=== PATIENT | male | born 1970 | race Caucasian/White ===

== ENCOUNTER → 2019-12-01 09:17 | Outpatient (BNVA) | payer OTHER, SELFPAY | PROVIDERS: Visit Provider Physician Assistant | DX: Z47.89 Encounter for other orthopedic aftercare (principal) | CPT/HCPCS: 99212 ==

== ENCOUNTER → 2019-12-21 13:17 | Outpatient (BNVA) | payer OTHER, SELFPAY | PROVIDERS: Visit Provider Orthopaedic Surgery | DX: M75.42 Impingement syndrome of left shoulder (principal); Z98.890 Other specified postprocedural states | CPT/HCPCS: 99212 ==

== ENCOUNTER → 2020-02-01 09:00 | Outpatient (BNVA) | payer OTHER, SELFPAY | PROVIDERS: Visit Provider Orthopaedic Surgery | DX: Z98.890 Other specified postprocedural states (principal) | CPT/HCPCS: 99212 ==

== ENCOUNTER → 2020-03-07 09:10 | Outpatient (BNVA) | payer OTHER, SELFPAY | PROVIDERS: Visit Provider Orthopaedic Surgery | DX: M25.512 Pain in left shoulder (principal); Z98.890 Other specified postprocedural states | CPT/HCPCS: 20605; 99212; J1020 ==

== ENCOUNTER → 2020-04-04 10:24 | Outpatient (BNVA) | payer OTHER, SELFPAY | PROVIDERS: Visit Provider Orthopaedic Surgery | DX: M25.512 Pain in left shoulder (principal) | CPT/HCPCS: 20605; 99212; J1040 ==

== ENCOUNTER → 2020-05-01 10:38 | Outpatient (BNVA) | payer OTHER, SELFPAY | PROVIDERS: Visit Provider Physician Assistant | DX: M25.512 Pain in left shoulder (principal) | CPT/HCPCS: 99212 ==

== ENCOUNTER 2020-05-03 08:39 | Day surgery (SDC) | payer OTHER, SELFPAY ==
[2020-04-27 14:53] VITALS: BMI 27.2
--- NOTE | 2020-05-02 10:59 | HO.ANESPROP2 ---
Documented by User: Celeste House 05/02/20 11:03 HPI - Anesthesia Eval Consult details Narrative: 50yo M for Right AC Joint Resection s/p L rotator cuff repair with GA-LMA 5 11/17/19 [facility] Active Problems Active Problems: All Active Problems (Updated 04/27/20 @ 14:29 by Verenice Webster) S/P shoulder surgery (Acute) Acromioclavicular joint pain (Acute) Past Medical History Medical History Anxiety and depression Arthritis Impingement syndrome of left shoulder ROBERTA on CPAP Family History Family History Mother No problems noted. Father No problems noted. Surgical History Surgical History History of shoulder surgery History of sleeve gastrectomy History of surgery on arm History of surgery on left wrist Hx of left knee surgery Hx of shoulder surgery Social History Social History Smoking Status: Never smoker Use of substances other than those prescribed or required for medical reasons: No Advance Directives: No Advance Directives Information Provided: No Advance Directives on File: No Current occupational status: unemployed Current occupation: Left [employer]ed Meds Allergies Allergy/AdvReac Type Severity Reaction Status Date / Time No Known Allergies Allergy Verified 04/27/20 14:32 Home Medications Medication Instructions Recorded Confirmed Last Taken Type bupropion HCl 150 mg 24 hr tablet, 150 mg PO QAM 11/23/19 04/27/20 Unknown History extended release prazosin 2 mg capsule 2 mg PO BEDTIME 11/23/19 04/27/20 Unknown History risperidone 1 mg tablet 1 mg PO DAILY 11/23/19 04/27/20 Unknown History albuterol sulfate [ProAir HFA] INHALATION 04/27/20 Unknown History lorazepam 1 tab PO BID PRN 04/27/20 04/27/20 Unknown History temazepam 1 cap PO BEDTIME 04/27/20 04/27/20 Unknown History venlafaxine 1 cap PO DAILY 04/27/20 04/27/20 Unknown History Exam Exam Date and Time: May 02, 2020 1059 Height,Weight and Vital Signs: Height 5 ft 10 in Weight 86.183 kg Assessment and Plan Assessment Anesthesia Assessment: Chart Reviewed Documented by User: Femi Brock 05/03/20 10:16 PMFSH Past Medical History Medical History Anxiety and depression Arthritis Impingement syndrome of left shoulder ROBERTA on CPAP Family History Family History Mother No problems noted. Father No problems noted. Family history of problems with anesthesia: No Surgical History Surgical History History of shoulder surgery History of sleeve gastrectomy History of surgery on arm History of surgery on left wrist Hx of left knee surgery Hx of shoulder surgery History of Problems with Anesthesia: No Social History Social History Smoking Status: Never smoker Use of substances other than those prescribed or required for medical reasons: No Advance Directives: No Advance Directives Information Provided: No Advance Directives on File: No Current occupational status: unemployed Current occupation: Left Handed Meds Allergies Allergy/AdvReac Type Severity Reaction Status Date / Time No Known Allergies Allergy Verified 04/27/20 14:32 Home Medications Medication Instructions Recorded Confirmed Last Taken Type bupropion HCl 150 mg 24 hr tablet, 150 mg PO QAM 11/23/19 04/27/20 Unknown History extended release prazosin 2 mg capsule 2 mg PO BEDTIME 11/23/19 04/27/20 Unknown History risperidone 1 mg tablet 1 mg PO DAILY 11/23/19 04/27/20 Unknown History albuterol sulfate [ProAir HFA] INHALATION 04/27/20 Unknown History lorazepam 1 tab PO BID PRN 04/27/20 04/27/20 Unknown History temazepam 1 cap PO BEDTIME 04/27/20 04/27/20 Unknown History venlafaxine 1 cap PO DAILY 04/27/20 04/27/20 Unknown History Exam Airway Mallampati Class: I TM Dist: >3cm Neck ROM: Full Loose/Missing/Broken Teeth: No Heart: ok Lungs: ok Assessment and Plan Assessment Anesthesia Assessment: Anesthesia Plan Discussed and Chart Reviewed Final Anesthetic Review NPO: Yes ASA Class: III Final Preanesthetic Review: No Changes in Pt Med Stat, Meds/Allgs Chart Reviewed, Consent Obtained/Reviewed and Anes Risks/Benef Reviewed Patient Risk: Intermediate Procedure Risk: Intermediate Assessment/Block/Sedation in SS: Assess/Block/Sedation-SS Anesthetic Plan Anesthetic Plan: GA, Regional Block and Agree w/ Assess. and Plan Disposition: Standard PACU
--- NOTE | 2020-05-03 07:21 | MHC.SHP ---
Pre-Procedural Eval Section A The patient is an INPATIENT: No Changes since office visit: No Cold of Flu in the past 2 weeks, No New Medical Problems, No Changes in Medication and No Patient answered all questions The History & Physical has been completed within 30 days and I have reviewed it.: Yes Section B Chief Complaint: right shoulder Allergies: Allergies Allergy/AdvReac Type Severity Reaction Status Date / Time No Known Allergies Allergy Verified 04/27/20 14:32 Plan I have reviewed the history and physical and performed a pertinent physical examination on my patient. No changes have occurred unless specified.
[2020-05-03 09:17] VITALS: BP 123/87; PULSE 60; RESP 16; TEMP 36.6; O2SAT 99
[2020-05-03] MEDS: Lactated Ringers 1,000 ML 100 ML IVCONT (09:43)
[2020-05-03 13:20] VITALS: BP 115/84; PULSE 66; RESP 16; TEMP 36.1; O2SAT 100
[2020-05-03 13:25] VITALS: BP 122/80; PULSE 64; RESP 16; O2SAT 98
[2020-05-03 13:30] VITALS: BP 113/82; PULSE 72; RESP 16; O2SAT 97
[2020-05-03 13:35] VITALS: BP 122/80; PULSE 64; RESP 16; O2SAT 97
[2020-05-03] MEDS: Acetaminophen 325 MG TABLET 650 MG PO (13:44)
[2020-05-03] MEDS: oxyCODONE HCl Immed Release 5 MG TABLET PO (13:45)
[2020-05-03] MEDS: Ketorolac Tromethamine 15 MG/ML VIAL IVPUSH (13:45)
[2020-05-03 13:50] VITALS: BP 119/89; PULSE 68; RESP 17; TEMP 36.3; O2SAT 98
--- NOTE | 2020-05-14 10:25 | P.OP_ITS ---
Operative Note Operative Note Date of Service: 05/03/20 Narrative: OPERATIVE PROCEDURE NOTE SURGEON: Dr. Davis (Jamila) [employer] REPRESENTATIVE: ; Roseanna John PAC PREOP DIAGNOSIS: AC joint arthrosis left shoulder POSTOP DIAGNOSIS: Same OPERATIVE PROCEDURE: Left acromioclavicular resectional arthroplasty CLINICAL NOTE: This gentleman who has had a previous long time ago open AC join t arthroplasty as well as a subacromial decompression has continued to have pain in the left AC joint area. It is failed non operative management. Therefore after explaining the risks benefits and alternatives and answering all his questions it was mutually agreed upon care following procedure OPERATIVE PROCEDURE Under regional and general anesthetic the patient was placed in the beach chair position on the operating table. The left arm underwent an EUA and demonstrated full range of motion without any evidence of instability. He was then prepped and draped in standard fashion. Surgical time-out was then performed. Procedure was confirmed. Site confirmed. Patient was identified. Medical and allergy history was reviewed. Preoperative antibiotics were not given. Standard DVT prophylaxis in place. All other items discussed and agreed upon. Incision over the AC joint using the previous scar was made. It was taken down through subcutaneous tissues. Hemostasis was achieved along the way using electrocautery. This brought us down to the level of the club the pectoral fascia which was divided. The AC joint was identified. Was open. There was a good gap though there was some reg id osteophyte edges a little softening of the distal clavicle. This was freshened up using a [place] and a oscillating saw. There was abundant room. All tissues appeared to be normal. Therefore proceeded to closure. Wound was thoroughly irrigated. The deep tissue was closed with 1. Dexon. Skin approximated using interrupted 2-0 Dexon. Skin was then this closed with yesy. Sterile dressing was then applied. The arm was placed in a sling. There anesthesia was then reversed. They were transferred supine to the room bed then taken to recovery room in good condition. Intraoperatively there was 20 cc of blood loss. No intraop transfusions or complications.
== END 2020-05-03 14:50 | disposition home or self-care (01) ==
PROVIDERS: Visit Provider Orthopaedic Surgery
PROC: (CPT 23130; principal; 2020-05-03 10:50)
DX: M19.012 Primary osteoarthritis, left shoulder (principal); G89.18 Other acute postprocedural pain; G47.33 Obstructive sleep apnea (adult) (pediatric); Z99.89 Dependence on other enabling machines and devices; Z79.899 Other long term (current) drug therapy
CPT/HCPCS: 23130; J0690; J1885; J2250; J2405; J3010

== ENCOUNTER → 2020-05-04 12:45 | Outpatient (BNVA) | payer OTHER, SELFPAY | PROVIDERS: Visit Provider Physician Assistant | DX: Z98.890 Other specified postprocedural states (principal) | CPT/HCPCS: 99212 ==

== ENCOUNTER → 2020-05-15 09:43 | Outpatient (BNVA) | payer OTHER, SELFPAY | PROVIDERS: Visit Provider Physician Assistant | DX: M25.512 Pain in left shoulder (principal); Z98.890 Other specified postprocedural states | CPT/HCPCS: 99212 ==

== ENCOUNTER → 2020-06-14 14:47 | Outpatient (BNVA) | payer OTHER, SELFPAY | PROVIDERS: Visit Provider Physician Assistant | DX: E66.9 Obesity, unspecified (principal); Z68.31 Body mass index [BMI] 31.0-31.9, adult; K91.2 Postsurgical malabsorption, not elsewhere classified; Z90.3 Acquired absence of stomach [part of]; Z71.3 Dietary counseling and surveillance; Z79.899 Other long term (current) drug therapy | CPT/HCPCS: 99212 ==

== ENCOUNTER 2020-06-19 08:42 | Outpatient (REF) | payer OTHER, SELFPAY ==
[2020-06-19 09:19] LABS: MANUAL DIFF FLAG NO
[2020-06-19 09:30] LABS: Estimated Average Glucose 108 mg/dL; Hemoglobin A1c % 5.4 %
[2020-06-19 09:34] LABS: Basophils Percent Auto 0.3 % (0-2); Eosinophils Percent Auto 0.3 % (0-4); Hematocrit 44.5 % (42-52); Hemoglobin 14.4 g/dl (14.0-18.0); Imm Gran Abs Auto 0.01 X10*3/uL (0.00-0.03); Imm Gran Pct Auto 0.3 % (0.0-0.4); Lymphocytes Absolute Auto 0.9 X10*3/uL (1.2-4.9); Lymphocytes Percent Auto 23.9 % (20-40); Mean Corpuscular HGB Conc 32.4 g/dl (31.0-36.0); Mean Corpuscular Hemoglobin 28.2 pg (27.0-33.0); Mean Corpuscular Volume 87.1 fL (80-98); Mean Platelet Volume 12.4 fL (9.4-12.4); Monocytes Absolute Auto 0.4 X10*3/uL (0.1-1.2); Monocytes Percent Auto 10.5 % (2-11); Neutrophils Absolute Auto 2.4 X10*3/uL (2.0-8.3); Neutrophils Percent Auto 64.7 % (45-73); Platelet Count 164 X10*3/uL (160-400); Red Blood Count 5.11 X10*6/uL (4.60-5.80); Red Cell Distribution Width 12.6 % (11.0-16.0); White Blood Count 3.7 X10*3/uL (4.8-10.8)
[2020-06-19 10:02] LABS: Alanine Aminotransferase 13 U/L (0-40); Albumin Level 4.7 g/dL (3.5-5.0); Alkaline Phosphatase 111 U/L (39-117); Anion Gap 12 (12-20); Aspartate Amino Transferase 29 U/L (5-37); Bilirubin Total 0.6 mg/dL (0.0-1.0); Blood Urea Nitrogen 21 mg/dL (9-16); C Reactive Protein 0.15 mg/dL (< or = 0.50); Calcium 10.2 mg/dL (8.4-10.2); Carbon Dioxide 31 mmol/L (22-29); Chloride 100 mmol/L (96-108); Cholesterol 197 mg/dL; Estimated Glomerular Filt Rate > 60; Glucose Fasting 97 mg/dL (60-99); HDL Cholesterol 65 mg/dL; Iron 51 mcg/dL (45-160); LDL Cholesterol Calculated 122 mg/dl; Percent Iron Saturation 12 % (15-50); Potassium 4.5 mmol/L (3.3-5.1); Sodium 138 mmol/L (135-145); Total Iron Binding Capacity 441 mcg/dL (228-428); Triglycerides 54 mg/dL; Unsaturated Iron Binding 390 ug/dL
[2020-06-19 10:06] LABS: Ferritin 73 ng/mL (20-250); TSH reflex Free T4 1.88 uIU/mL (0.32-4.0); Vitamin D 25-OH Total 21.5 ng/mL (>30)
[2020-06-19 12:05] LABS: Folate 10.8 ng/mL (> or = 4.0); Vitamin B12 215 pg/mL (200-900)
[2020-06-20 09:36] LABS: Insulin Level Total 6.8 uIU/mL
[2020-06-20 13:41] LABS: Calcium (PTHI) 9.9 mg/dL (8.6-10.3); PTHI 47 pg/mL (14-64)
[2020-06-22 01:51] LABS: Zinc 68 mcg/dL (60-130)
[2020-06-23 12:46] LABS: Vitamin B1 15 nmol/L (8-30)
[2020-06-23 13:37] LABS: Vitamin A 55 mcg/dL (38-98)
== END 2020-06-19 08:43 | disposition home or self-care (01) ==
LOC: HO.LAB 08:42
PROVIDERS: Visit Provider Physician Assistant
DX: K91.2 Postsurgical malabsorption, not elsewhere classified (principal); E66.01 Morbid (severe) obesity due to excess calories; Z90.3 Acquired absence of stomach [part of]
CPT/HCPCS: 36415; 80053; 80061; 82306; 82607; 82728; 82746; 83036; 83525; 83540; 83970; 84425; 84443; 84590; 84630; 85025; 86140

== ENCOUNTER → 2020-07-06 10:16 | Outpatient (BNVA) | payer OTHER, SELFPAY | PROVIDERS: Visit Provider Dietitian, Registered | DX: E66.3 Overweight (principal); Z68.29 Body mass index [BMI] 29.0-29.9, adult | CPT/HCPCS: 97803 ==

== ENCOUNTER → 2020-08-21 14:27 | Outpatient (BNVA) | payer OTHER, SELFPAY | PROVIDERS: Visit Provider Dietitian, Registered | DX: K91.2 Postsurgical malabsorption, not elsewhere classified (principal); Z90.3 Acquired absence of stomach [part of] | CPT/HCPCS: 97803 ==

== ENCOUNTER 2022-02-18 09:14 | Outpatient (REF) | payer OTHER, SELFPAY | END 2022-02-18 09:15 | disposition home or self-care (01) | LOC: HO.HOSX 09:14 | PROVIDERS: Visit Provider Physician Assistant | DX: Z13.89 Encounter for screening for other disorder (principal) ==

== ENCOUNTER 2024-08-19 07:17 | Outpatient (REF) | payer OTHER, SELFPAY | END 2024-08-19 07:18 | disposition home or self-care (01) | LOC: HO.HOSX 07:17 | PROVIDERS: Visit Provider Physician Assistant | DX: Z13.89 Encounter for screening for other disorder (principal) ==